=== PATIENT | male | born 1970 | race African-American/Black ===

== ENCOUNTER 2019-05-16 18:19 | Emergency (ER) | payer OTHER ==
[~2019-05-16] VITALS: Ht 180.3 cm; Wt 90.7 kg
[2019-05-16] MEDS ORDERED: GLUCOPHAGE500 MG PO (18:38)
== END 2019-05-16 19:38 | disposition home or self-care (01) ==
LOC: ED 18:19
DX: R20.2 Paresthesia of skin (principal); I10 Essential (primary) hypertension; E11.9 Type 2 diabetes mellitus without complications; F17.200 Nicotine dependence, unspecified, uncomplicated
CPT/HCPCS: 99283